=== PATIENT | female | born 1970 | race Caucasian/White ===

== ENCOUNTER → 2018-11-10 12:51 | Outpatient (CLI) | payer OTHER, SELFPAY ==
--- NOTE | 2018-11-10 10:15 | CYST_PTH ---
PATIENT: SEAN TREVINO LOC: [facility] U#:[id number] AGE/SX: 54/F ROOM: RE11/10/[address]: Dr. Arvin Oliva DDS : 1970 BED: DIS: SPEC #: [id number] RECD: 11/10/18 11:52 STATUS: VAUGHN RAGHAVENDRA #: [id number] GUNNAR: 11/10/18 10:[address]: Arvin Oliva DEPT: SURGICAL PATHOLOGY RECD BY: Nikolay Le Tissues: CYST Procedures: Surgery Specimen Level IV HEADER OPERATION: Bone/soft tissue biopsy PRE-OP DIAGNOSIS: Cystic appearing tissue around tooth 17 TISSUE SUBMITTED: Cystic appearing tissue around tooth 17 MICROSCOPIC DIAGNOSIS Tissue area 17, biopsy: Moderate to marked chronic inflammation and mild acute inflammation. Negative for malignancy. See comment. JOHN:[email or web address] 11/11/18 COMMENT No obvious cystic lesion is identified. The specimen predominantly consists of fibroconnective tissue showing focal area of squamous epithelium. Clinical correlation and appropriate follow up are necessary. MICROSCOPIC DESCRIPTION Slides are reviewed. GROSS DESCRIPTION Received in fixative is one container labeled with the patient's name and designated tissue area 17. The specimen consists of a brownish-pink fragment of soft tissue measuring 1.4 x 0.6 x 0.4 cm. The specimen is totally submitted in one cassette. / CE:jitendra 11/10/18 TC:3 CPT: 92393
== END ==
PROVIDERS: Referring Provider Dentist Oral and Maxillofacial Surgery; Visit Provider Dentist Oral and Maxillofacial Surgery
DX: K09.9 Cyst of oral region, unspecified (principal)
CPT/HCPCS: 88304; 88305